=== PATIENT | female | born 1980 | race Caucasian/White ===

== ENCOUNTER 2018-06-18 15:14 | Emergency (ER) | payer OTHER ==
--- NOTE | 2018-06-18 15:42 | EDPHY ---
HPI/HX/ROS/PE/MDM Narrative: CHIEF COMPLAINT: Abdominal pain HISTORY OF PRESENT ILLNESS: The patient is a 38 y/o female complaining of worsening abdominal pain for the last 3 days. On Tuesday morning, she noticed some intermittent abdominal pain. At that time the pain was difficult to localize. Over the past few days, the pain worsened and localized to the right lower quadrant. The pain did not change with eating or drinking until this afternoon when the pain abruptly worsened after eating. She has associated decreased appetite. She denies nausea, vomiting, diarrhea, constipation, urinary complaints, or any other associated symptoms. She denies history of ovarian cysts, lung issues, or renal issues. She takes Valium daily, originally for insomnia and anxiety, but has been unable to stop taking as she experienced cardiac issues during withdrawal. She has an IUD since 2009, with a new one placed in September. She is unsure of her last menses, but had some spotting yesterday. She reports there is a chance she is . She is able to do her normal activities, including going for a run yesterday, which caused her to feel lower abdominal cramps. No fever, chills, shortness of breath, palpitations, vomiting, diarrhea, urinary complaints, headache, lightheadedness. REVIEW OF SYSTEMS: Aside from elements discussed in the HPI, a comprehensive 10-point review of systems was reviewed and is negative. PAST MEDICAL HISTORY: Tachycardia and other cardiac issues when withdrawing from Valium SOCIAL HISTORY: Lives in [place], access [facility], PCP: Dr. Parekh VITAL SIGNS: Reviewed by me GENERAL: Well-developed, well-nourished, resting comfortably in no respiratory distress. Slightly anxious. HEENT: Atraumatic. Eyes: No icterus, no injection. Mouth: moist mucous membranes. No erythema or lesions. Neck: supple with no adenopathy. LUNGS: Clear to auscultation bilaterally, no wheezes, rhonchi or rales. CARDIAC: Regular rate and rhythm, no rubs, murmurs or gallops. ABDOMEN: Soft. Tender in the lower right quadrant, worsen over McBurney's Point. Diffuse voluntary guarding to palpation. Slightly distended. BACK: No CVA tenderness. EXTREMITIES: No trauma. No edema. Range of motion is normal throughout. NEURO: Alert and oriented, grossly nonfocal. SKIN: Warm and dry, no rash. PSYCHIATRIC: Normal mentation, no agitation. ED Course: Study: Ultrasound of the abdomen and pelvis Indication: Pain Results: Ultrasound of the abdomen and pelvis were obtained. The results of the study are: normal reproductive system, no cysts, IUD in appropriate position, appendix not visualized The study was read by the radiologist, Dr. Hartman. Study: CT of the abdomen Indication: McBurney's tenderness, appendix not visualized on US Results: CT scan of the ultrasound was obtained. The results of the study are: Constipation, normal appendix The patient presents with worsening abdominal pain. She denies vomiting, diarrhea, or constipation. Her pain is localized to the right lower quadrant with tenderness over McBurney's Point. She has diffuse voluntary guarding to palpation. Plan for ultrasound to evaluate appendix and ovarian cysts, CBC, basic metabolic panel, beta-HCG, and urinalysis to evaluate etiology of symptoms. 1L NS fluids and 75mcg Fentanyl for symptoms management. 5:15 PM - The ultrasound shows normal ovaries and appropriate IUD placement. Appendix was not visualized. Plan for CT. 6:00 PM - The CT is negative for appendicitis but shows constipation. Labs not concerning or indicative of an etiology. 6:15 PM - I spoke with the patient and informed her of the results of her workup. I feel she is safe for discharge with instructions to take magnesium citrate for constipation. She agrees to this course of action. MDM: The differential diagnosis for the patient's abdominal pain was considered including but not limited to ovarian cyst, pelvic inflammatory disease, ovarian torsion, urinary tract infection, related complications, and appendicitis. - Data Points Imaging Results: CT Abd Pelvis Impression: 1. No CT evidence of acute appendicitis. 2. Moderate constipation. 3. 3.3-cm enhancing mass within the ventral subcapsular aspect of the left hepatic lobe at the junction of the medial and lateral segments. This lesion most likely represents a hepatic hemangioma given its imaging and enhancement characteristics. Follow-up sonography in one year is recommended to assess for stability or progression in size. Results and recommendations discussed with Dr. Rosalba Bustillo at the time of the interpretation. Dictated By: Jake Hartman MD Pelvic US Impression: Negative pelvic sonogram. Results called to Dr. Bustillo at 5:00 PM. Dictated By: Jake Hartman MD Ultrasound of appendix Impression: 1. Nonvisualization appendix. Results called to Dr. Bustillo at 5: 00 PM. Dictated By: Jake Hartman MD Imaging: Discussed imaging studies w/ call taker Radiologist Laboratory Results: Laboratory Results 06/18/18 15:50 06/18/18 15:50 Medications Given: Discontinued Medications Fentanyl (Sublimaze) 75 mcg IVP EDNOW ONE Stop: 06/18/18 16:05 Last Admin: 06/18/18 16:16 Dose: 75 mcg Sodium Chloride (Ns) 1,000 mls @ 0 mls/hr IV ONCE ONE; Wide Open PRN Reason: Protocol Stop: 06/18/18 16:07 Last Admin: 06/18/18 16:14 Dose: 1,000 mls Ketorolac Tromethamine (Toradol) 30 mg IVP EDNOW ONE Stop: 06/18/18 17:11 Last Admin: 06/18/18 17:13 Dose: 30 mg General Time Seen by Provider: 06/18/18 15:33 Initial Vital Signs: Initial Vital Signs Temperature (C) 36.7 C 06/18/18 15:25 Heart Rate 58 L 06/18/18 15:25 Respiratory Rate 16 06/18/18 15:25 Blood Pressure 130/70 H 06/18/18 15:25 O2 Sat (%) 98 06/18/18 15:25 O2 Delivery Mode Room Air Allergies/Adverse Reactions: No Known Allergies Allergy (Verified 06/18/18 15:27) Home Medications: Medication Instructions Recorded Diazepam [Valium 5 MG (*)] 15 mg PO 06/18/18 Departure - Departure Disposition: Home, Routine, Self-Care Clinical Impression: Abdominal pain Qualifiers: Abdominal location: right lower quadrant Qualified Code(s): R10.31 - Right lower quadrant pain Constipation Qualifiers: Constipation type: unspecified constipation type Qualified Code(s): K59.00 - Constipation, unspecified Instructions: Constipation (ED), Abdominal Pain (ED) Additional Instructions: For your constipation, I recommend obtained a bottle of magnesium citrate. Mix half the bottle with 16 oz of Gatorade and drink this. Wait another 3-4 hours. If you're not having significant stool output, you may drink the rest of the magnesium citrate with another 16 oz of Gatorade. You may take Tylenol or ibuprofen as needed for your abdominal discomfort. Please follow up with primary care physician if you're not improving with the above treatment. I also would recommend taking a laxative, such as dulcolax. Your also have a 3.3 cm mass on the left hepatic lobe. This appears consistent with a hemangioma. I would recommend follow up with your primary care physician for re-evaluation. Serial ultrasounds may be recommended. Referrals: Deidre Parekh MD [Primary Care Provider] - As per Instructions Report Scribed for: Rosalba Bustillo Report Scribed by: Bárbara Mcginnis Date of Report: 06/18/18 Time of Report: 16:15 Physician Review and Approval Statement: Portions of this note were transcribed by a medical research associate. I personally performed a history, physical exam, medical decision making, and confirmed accuracy of information the transcribed note.
[2018-06-18] MEDS ORDERED: fentaNYL 100 MCG/2 ML INJ IVP ONE (16:04)
[2018-06-18] MEDS ORDERED: NS 1,000 ML IV ONE (16:06)
[2018-06-18 16:13] LABS: PLATELET COUNT 259 10^3/uL (150-400)
[2018-06-18] MEDS ORDERED: ONDANSETRON 4 MG/2 ML VIAL ONE (16:13)
[2018-06-18] MEDS ORDERED: KETOROLAC 30 MG/1 ML SDV IVP ONE (17:10)
[2018-06-18] MEDS ORDERED: IOPAMIDOL (ISOVUE-300) 100 ML BTL ONE (17:14)
[2018-06-18 18:35] VITALS: BP 114/65
== END 2018-06-18 18:34 | disposition home or self-care (01) ==
DX: R10.31 Right lower quadrant pain (principal); K59.00 Constipation, unspecified; K76.89 Other specified diseases of liver; E86.9 Volume depletion, unspecified
CPT/HCPCS: 96374; J1885; J2405; J3010; Q9967

== ENCOUNTER → 2018-07-14 | Outpatient (CLI) | payer OTHER | LOC: BMCIMAGING 14:41 | PROVIDERS: ATTEND Internal Medicine | DX: Z12.31 Encounter for screening mammogram for malignant neoplasm of breast (principal) ==